=== PATIENT | male | born 1985 | race Caucasian/White ===

== ENCOUNTER 2020-07-10 19:02 | Emergency (ER) | payer SELFPAY ==
--- NOTE | ~2020-07-10 | XR_ITS ---
EXAMINATION: XR lumbar spine 2-3V EXAM DATE: 07/10/2020 19:38 INDICATION: Left-sided low back pain, no known recent injury. TECHNIQUE: Lumber spine frontal, lateral, lateral L5-S1 projections for interpretation. There is no prior study for comparison. FINDINGS: There is 2 mm retrolisthesis L3 on L4 and L4 on L5. The disc heights and vertebral body he ights are maintained. There is mild to moderate lower lumbar facet arthropathy. No spondylolysis. Sac rum, sacroiliac joints, sacral arcuate lines are intact. Paraspinal soft tissue is unremarkable. IMPRESSION: 1. Mild to moderate lower lumbar facet arthropathy. Reviewed, dictated and finalized at location A.
[2020-07-10 19:15] VITALS: BP 113/57; PULSE 88; RESP 18; TEMP 36.8; O2SAT 98
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
== END 2020-07-10 20:00 | disposition home or self-care (01) ==
PROVIDERS: Emergency Provider Registered Nurse
DX: S39.012A Strain of muscle, fascia and tendon of lower back, initial encounter (principal); X50.0XXA Overexertion from strenuous movement or load, initial encounter; F17.210 Nicotine dependence, cigarettes, uncomplicated
CPT/HCPCS: 72100; 99213; G0463

== ENCOUNTER 2020-09-08 09:48 | Emergency (ER) | payer SELFPAY ==
--- NOTE | ~2020-09-08 | XR_ITS ---
EXAMINATION: XR foot RT min 3V EXAM DATE: 09/08/2020 10:11 INDICATION: Generalized right foot pain and swelling for 2 days. TECHNIQUE: Right foot dorsoplantar, lateral and oblique projections obtained and reviewed. There is no prior study for comparison. FINDINGS: Right metatarsal bones unremarkable. 1st middle phalangeal amputation. There are no acute fractures or dislocations identified. There is no subcutaneous gas. There is soft tissue swelling fo refoot. There are no radiopaque foreign bodies. IMPRESSION: 1. Right foot exam without acute osseous findings. 2. Soft tissue swelling. Reviewed, dictated and finalized at location B. EAD BUILDER
[2020-09-08 09:54] VITALS: BP 133/81; PULSE 84; RESP 16; TEMP 37.7; O2SAT 99
--- NOTE | 2020-09-08 10:07 | ED.LOWEXIN ---
HPI - Extremity Injury (Lower) General Chief Complaint: Extremity Injury, Lower Stated Complaint: right foot injury Source: patient Mode of arrival: ambulatory Limitations: no limitations History of Present Illness HPI Narrative: Patient is a 35-year-old male who presents complaining of right foot pain. Patient reports pain x1 day. Reports taking ibuprofen and pain is somewhat decreased. Patient reports redness and swelling to right foot. Previous crush injury to same foot. He denies new injury denies a history of DVT. He denies all other complaints. MD complaint: other (Right foot pain) Related Data Allergies Allergy/AdvReac Type Severity Reaction Status Date / Time No Known Allergies Allergy Verified 07/10/20 19:23 Review of Systems Review of Systems: Narrative: CONSTITUTIONAL: Denies fever, chills, or sweats. EYES: Denies visual changes, redness, or discharge. ENT: Denies rhinorrhea, congestion, sore throat, or otalgia. CARDIOVASCULAR: Denies chest pain, palpitations, or edema. RESPIRATORY: Denies cough or dyspnea. GASTROINTESTINAL: Denies abdominal pain, nausea, vomiting, or diarrhea. GENITOURINARY: Denies dysuria or hematuria. SKIN: Denies rash or itching. MUSCULOSKELETAL: Right foot pain NEUROLOGIC: Denies headache, numbness, dizziness, or weakness. PSYCHIATRIC: Denies anxiety or depression. [facility] Past Medical History Medical History (Updated 09/08/20 @ 10:34 by DEEPALI Lino) Amputation of right great toe Femur fracture, right ORIF Fracture of right foot Lumbar back pain Open fracture of right clavicle Right orbital fracture Surgical History Surgical History History of orthopedic surgery Family History Family History (Updated 09/08/20 @ 10:09 by DEEPALI Lino) Other No significant family history Social History Social History Smoking packs per day: 1 Smoking cigarettes per day: 20.0 Years smoked: 20 Smoking pack-years: 20.00 Smoking status: Current some day smoker Tobacco type: cigarettes Alcohol intake: former Substance use type: marijuana Gender identity (if verbalized by the patient): Male Exam Narrative: Exam Narrative: GENERAL: Well-appearing, well-nourished, and in no acute distress. HEAD: Normocephalic, atraumatic. EYES: No redness or drainage. Conjunctiva are normal. ENT: Mucous membranes pink and moist. CHEST: No respiratory distress. HEART: Regular rate and rhythm. EXTREMITIES: Normal range of motion. Erythema and edema to right foot, positive pedal pulse, capillary refill intact SKIN: Warm, dry, no rash. NEURO: No focal deficits. Alert and oriented x3. Gait steady. PSYCH: Normal affect. No signs of depression or anxiety. Course Vital Signs Vital signs: Vital Signs Temperature 37.7 C H 09/08/20 09:54 Pulse Rate 84 09/08/20 09:54 Respiratory Rate 16 09/08/20 09:54 Blood Pressure 133/81 09/08/20 09:54 Pulse Oximetry 99 09/08/20 09:54 Temperature 37.7 C H 09/08/20 09:54 Pulse Rate 84 09/08/20 09:54 Respiratory Rate 16 09/08/20 09:54 Blood Pressure 133/81 09/08/20 09:54 Pulse Oximetry 99 09/08/20 09:54 Reviewed. Patient has been instructed to follow-up with his PCP regarding his blood pressure. MDM - Extremity Injury (Lower) MDM Narrative Medical decision making narrative: Patient most likely has cellulitis to his right foot. Evidence of interdigital tinea with small amounts of cracking between toes. Discussed treatment of that as well. Patient's Wells Score for DVT is 0. Discussed with patient signs or symptoms of DVT. Discussed with patient the need to take antibiotics as directed for full course of treatment. Patient is also aware that if increases in swelling, redness or numbness and tingling in the foot occurs, that he is to go to the emergency department immediately for further ev
== END 2020-09-08 10:44 | disposition home or self-care (01) ==
PROVIDERS: Emergency Provider Nurse Practitioner
DX: L03.115 Cellulitis of right lower limb (principal); F17.210 Nicotine dependence, cigarettes, uncomplicated
CPT/HCPCS: 73630; 99213; G0463

== ENCOUNTER 2021-08-24 18:22 | Emergency (ER) | payer OTHER, SELFPAY ==
[2021-08-24 18:28] VITALS: BP 129/73; PULSE 70; RESP 16; TEMP 37.1; O2SAT 97
[2021-08-24 18:39] VITALS: BP 129/73; PULSE 70; RESP 16; TEMP 37.1; O2SAT 97
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
[2021-08-24] MEDS: cefTRIAXone 1 GM, LIDOCAINE HCL 1% LOCAL INJ 2.1 ML IM (19:00)
== END 2021-08-24 19:22 | disposition home or self-care (01) ==
PROVIDERS: Emergency Provider Nurse Practitioner Adult Health
DX: N39.0 Urinary tract infection, site not specified (principal); M62.838 Other muscle spasm; F17.210 Nicotine dependence, cigarettes, uncomplicated
CPT/HCPCS: 81003; 87086; 87491; 87591; 87661; 96372; 99213; G0463; J0696

== ENCOUNTER 2021-10-15 12:50 | Emergency (ER) | payer OTHER, SELFPAY ==
--- NOTE | 2021-10-15 12:53 | ED.LOWEXIN ---
HPI - Extremity Injury (Lower) General Chief Complaint: Extremity Injury, Lower Stated Complaint: left ankle pain Time Seen by Provider: 10/15/21 12:53 Source: patient and RN notes reviewed History of Present Illness HPI Narrative: Patient is a 36-year-old male who presents the urgent care with complaints of left ankle pain and swelling. Patient states it started yesterday and has increased in pain today where he cannot even put a sock on. Patient states that he has had no injury or trauma. States that it did happen in the right foot in the past and they told him it was cellulitis . Patient does not have any open wounds. Denies of any foreign body in the ankle/foot from previous fracture. Denies of fever, chills, nausea or vomiting. No other acute complaints. No acute distress noted. Patient read the plan of care. Some parts of this dictation were generated by voice recognition software and may contain typographical and/or grammatical inaccuracies. Related Data Allergies Allergy/AdvReac Type Severity Reaction Status Date / Time No Known Allergies Allergy Verified 10/15/21 13:04 Review of Systems Review of Systems: CONSTITUTIONAL: Denies fever, chills, or sweats. EYES: Denies visual changes, redness, or discharge. ENT: Denies rhinorrhea, congestion, sore throat, or otalgia. CARDIOVASCULAR: Denies chest pain, palpitations, or edema. RESPIRATORY: Denies cough or dyspnea. GASTROINTESTINAL: Denies abdominal pain, nausea, vomiting, or diarrhea. GENITOURINARY: Denies dysuria or hematuria. SKIN: Denies rash or itching. MUSCULOSKELETAL: Reports of left ankle pain and swelling NEUROLOGIC: Denies headache, numbness, or weakness. All other systems reviewed are negative, except as documented in HPI. [facility] Past Medical History Medical History Amputation of right great toe Femur fracture, right ORIF Fracture of right foot Lumbar back pain Open fracture of right clavicle Right orbital fracture Surgical History Surgical History History of orthopedic surgery Family History Family History Other No significant family history Social History Social History Smoking packs per day: 1 Smoking cigarettes per day: 20.0 Years smoked: 20 Smoking pack-years: 20.00 Smoking status: Current some day smoker Tobacco type: cigarettes Alcohol intake: former Substance use type: marijuana Gender identity (if verbalized by the patient): Male Comments At the time of my signature, I reviewed and agree with the nursing past medical, surgical, social, and family history. There is no relevant family history pertinent to the patient complaint. Exam Narrative: GENERAL: This is a well-nourished, well-developed patient, in no apparent distress. HEAD: normocephalic, atraumatic. EYES: PERRL. Sclera clear/white. Vision is grossly intact. EARS: External ears normal NOSE: External nose normal with no obvious nasal discharge, nares without redness, no rhinorrhea. THROAT: Mucous membranes moist NECK: Neck supple CARDIOVASCULAR: Regular rate and rhythm without murmurs, gallops, or rubs. RESPIRATORY: Clear to auscultation. Breath sounds equal bilaterally. No wheezes, rales, or rhonchi. SKIN: warm, intact with no suspicious lesions or rash, good texture and turgor. NEURO: awake, alert, and oriented to person, place and time. There were no obvious focal neurologic abnormalities. EXTREMITIES: Moderate erythema/edema to the left lateral malleolus with moderate to severe tenderness on light touch/palpation. Positive strong left pedal pulse with capillary refill less than 2 seconds. Highly suspicious for gout Course Course Level of Care: Express Care Visit Vital Signs Vital signs: Vital Signs Temperature 98.6 F 01/2
[2021-10-15 12:56] VITALS: BP 111/68; PULSE 96; RESP 16; TEMP 37; O2SAT 99
== END 2021-10-15 13:23 | disposition home or self-care (01) ==
PROVIDERS: Emergency Provider Nurse Practitioner Family
DX: M10.9 Gout, unspecified (principal); F17.210 Nicotine dependence, cigarettes, uncomplicated
CPT/HCPCS: 99213; G0463

== ENCOUNTER 2022-09-04 15:09 | Emergency (ER) | payer OTHER, BC, SELFPAY ==
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
[2022-09-04 15:16] VITALS: BP 143/81; PULSE 97; RESP 20; TEMP 36.9; O2SAT 97
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
== END 2022-09-04 17:09 | disposition home or self-care (01) ==
PROVIDERS: Emergency Provider Nurse Practitioner
DX: S29.012A Strain of muscle and tendon of back wall of thorax, initial encounter (principal); V43.52XA Car driver injured in collision with other type car in traffic accident, initial encounter; M47.814 Spondylosis without myelopathy or radiculopathy, thoracic region; F17.210 Nicotine dependence, cigarettes, uncomplicated; Z89.411 Acquired absence of right great toe
CPT/HCPCS: 71046; 72072; 99214; G0463

== ENCOUNTER 2022-12-31 14:56 | Emergency (ER) | payer BC, SELFPAY ==
[2022-12-31 15:03] VITALS: BP 127/83; PULSE 76; RESP 16; TEMP 37.2; O2SAT 98
--- NOTE | 2022-12-31 15:53 | ED.URI ---
HPI - URI/Sore Throat General Chief Complaint: Upper Respiratory Infection Stated Complaint: Sore Throat Time Seen by Provider: 12/31/22 15:30 Source: patient, RN notes reviewed and old records reviewed Mode of arrival: ambulatory Limitations: no limitations History of Present Illness HPI Narrative: 37 year old male accompanied by son resents to express care with complaints of sore throat nasal congestion and drainage and cough which started last night. Patient reports that he has felt feverish and has had some chills and sweats denies any headache, body aches or any nausea or vomiting. Patient has not taken any OTC medications for his symptoms. Patient has had known exposure to strep from his son who tested positive today in clinic. MD elicited complaint: sore throat, rhinorrhea and nasal congestion Pertinent past history: other (reports history of strep throat) Onset (ago): day(s) (last night) Pain scale (0-10): 5 Able to tolerate fluids by mouth: Yes Treatments prior to arrival: none Related Data Allergies Allergy/AdvReac Type Severity Reaction Status Date / Time No Known Allergies Allergy Verified 12/31/22 15:43 Review of Systems Review of Systems: CONSTITUTIONAL: Reports malaise, chills, sweats, or fever. EYES: Denies visual changes, redness, or discharge. ENT: Reports rhinorrhea, congestion, sinus pain, no otalgia and sore throat especially left side. CARDIOVASCULAR: Denies chest pain, palpitations, or edema. RESPIRATORY: Reports cough.? Denies dyspnea. GASTROINTESTINAL: Denies abdominal pain, nausea, vomiting, diarrhea SKIN: Denies rash or itching. MUSCULOSKELETAL: Denies myalgia. NEUROLOGIC: Denies headache. All systems reviewed & are unremarkable except as noted in HPI and below PMFSH Past Medical History Medical History Amputation of right great toe Femur fracture, right ORIF Fracture of right foot Lumbar back pain Open fracture of right clavicle Right orbital fracture Surgical History Surgical History History of orthopedic surgery Family History Family History Other No significant family history Social History Social History Smoking packs per day: 1 Smoking cigarettes per day: 20.0 Years smoked: 20 Smoking pack-years: 20.00 Smoking status: Current some day smoker Tobacco type: cigarettes Alcohol intake: former Substance use type: marijuana Living arrangements: with family Gender identity (if verbalized by the patient): Male Comments At time of signature, agree with nursing past medical, surgical, social and family history. There is no relevant family history pertinent to the presenting complaint Exam Narrative: GENERAL: Well-appearing, well-nourished, and in no acute distress. HEAD: Normocephalic EYES: PERRLA, conjunctivae clear ENT: Nares clear, turbinates edematous and erythematous, clear discharge. Mucous membranes moist. TM pearly spence with dull light reflex bilaterally; no tragal tenderness. Oropharynx erythematous without lesions. Tonsils red enlarged especially left tonsil and without exudate, no drooling, no hoarseness, no trismus, uvula midline. NECK: Supple. lymphadenopathy CHEST: Clear to auscultation, breath sounds equal. No wheezing, rhonchi, rales, or stridor. No respiratory distress, speaks in full sentences.SAO2 98% on room air HEART: Regular rate and rhythm. No murmur heard. SKIN: Warm, dry, no rash. NEURO: Alert and oriented x3. PSYCH: Normal mood and affect Course Course Emergency Course: Patient is aware of diagnosis, understands and agrees to treatment plan.? Anticipatory guidance given.? Patient agrees to follow-up as directed and is aware of reasons to seek care at the emergency department. Po
== END 2022-12-31 16:00 | disposition home or self-care (01) ==
PROVIDERS: Emergency Provider Registered Nurse
DX: J03.90 Acute tonsillitis, unspecified (principal); F17.210 Nicotine dependence, cigarettes, uncomplicated
CPT/HCPCS: 87081; 87880; 99213; G0463

== ENCOUNTER 2023-11-08 12:42 | Emergency (ER) | payer OTHER, BC, SELFPAY ==
--- NOTE | ~2023-11-08 | XR_ITS ---
EXAMINATION: XR lumbar spine min 4V DATE: 11/08/2023 13:44 INDICATION: Low back pain TECHNIQUE: Anteroposterior, lateral, and bilateral oblique views of the lumbar spine, and cone-down l ateral view of the lumbosacral junction were obtained. COMPARISON: 07/10/2020 FINDINGS: There are 2 mm of unchanged retrolisthesis of L3 on L4 and L4 on L5. The vertebral body hei ghts are maintained. There is mild loss of intervertebral disc space height at L4-5. There is no frac ture. Orthopedic hardware is noted in the proximal right femur. 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 IMPRESSION: 1. Mild lumbar spondylosis without acute findings or significant interval change. Reviewed, dictated and finalized at location L. WEIGHER IMPRESSION: 1. Mild lumbar spondylosis without acute findings or significant interval ino garcia
[2023-11-08 12:48] VITALS: BP 131/77; PULSE 73; RESP 18; TEMP 36.7; O2SAT 100
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
== END 2023-11-08 14:10 | disposition home or self-care (01) ==
PROVIDERS: Emergency Provider Registered Nurse
DX: M54.50 Low back pain, unspecified (principal); F17.210 Nicotine dependence, cigarettes, uncomplicated
CPT/HCPCS: 72110; 99213; G0463

== ENCOUNTER 2024-11-01 13:47 | Emergency (ER) | payer OTHER, MEDICAID, SELFPAY ==
--- OUTSIDE RECORDS SUMMARY | 2024-11-01 13:49 | XMS_ITS | Continuity of Care Document ---
Author Organization [facility] Address [address] [place] [address] Phone Care Team Providers Care Cephalometric Tracer Name Role Phone Renay Aguilar Unavailable Unavailable Procedures Procedure Date Eye Exam Established Pt Office/outpatient Visit, Est Advance Directives Directive Yes / No Effective Date File Name No Information Encounters Encounter Description Practice Location Reason(s) For Visit Diagnoses Date Provider Providers Copied on Encounter [facility], [address] [place] [address] [address], [place], [place], [id number], tel:[phone] [facility] No Information 0 [facility] , [address], [place], [place], [facility], [place]. tel:[phone] Office/outpat ient Visit, Est [facility], [address] [place] [address] [address], [place], [place], [id number], tel:[phone] [facility] No Information 0 Hsieh OD Chase. [facility] , [address], [place], [address], [place]. tel:[phone] Referring Provider: Fermin Garcia [facility] [address], [place], [place], [facility]. tel:[phone] Family History Family Member Type Diagnosis Age At Onset No Information Payers Payer name Insurance type Covered green party ID Authoriza tion(s) GHP CI [id number] Social History Type Description Quantity Date Captured Comments Sex Male Smoking Status No Information Chief Complaint And Reason For Visit No Information Reason For Referral Reason For Referral No Information History Of Present Illness Encounter Date Complaint History Of Prese nt Illness No Information Functional Status Date Functional Assessmen t No Information Instructions Date Instruction Additional Infor mation No Information Assessments Type Assessment Date No Information Patient Care Teams Name Effective Dates (start - stop) Status Members No Information
--- OUTSIDE RECORDS SUMMARY | 2024-11-01 13:49 | XMS_ITS | Clinical Summary ---
Author Organization [facility] Address [address] [place] [address] Phone Care Team Providers Care Director Of Social Media Marketing Name Role Phone Provider, None Primary Care Provider Unavailabl e Allergies No known active allergies Medications ibuprofen (MOTRIN) 800 MG Tablet Take 1 Tab by mouth every 8 hours. 30 Tab 0 04/19/2016 Active HYDROcodone-kristen taminophen (NORCO) 5-325 MG Tablet Take 1-2 Tabs by mouth every 4 hours as needed for Pain. 20 Tab 0 04/19/2016 Active HYDROcodone-kristen taminophen (NORCO) 5-325 MG Tablet Take 1 Tab by mouth every 6 hours as needed for Moderate or more severe pain. 10 Tab 05/13/2019 Active ketorolac (TORADOL) 10 MG Tablet Take 1 Tab by mouth every 6 hours as needed for Mild or more severe pain. 15 Tab 05/13/2019 Active ibuprofen (MOTRIN) 800 MG Tablet Take 1 Tablet by mouth every 8 hours as needed for Fever. 20 Tablet 07/02/2021 Active Immunizations Immunization Administration Dates Next Due TDAP Vaccine 07/02/2021 Social History Tobacco Use Types Packs/Day Years Used Date Smoking Tobacco: Every Day Cigarettes Smokeless Tobacco: Never Alcohol Use Standard Drinks/Week Comments Not Currently 0 (1 standard drink = 0.6 oz pur e alcohol) Socially Sex and Gender Information Value Date Recorded Sex Assigned at Not on file Legal Sex Male 12:10 AM CDT Gender Identity Not on file Sexual Orientation Not on file Last Filed Vital Signs Vital Sign Reading Time Taken Comments Blood Pressure 125/79 07/03/2021 12:01 AM CDT Pulse 68 07/03/2021 12:01 AM CDT Temperature 36.5 C (97.7 F) 07/02/2021 10:29 PM CDT Respiratory Rate 18 07/03/2021 12:01 AM CDT Oxygen Saturation 95% 07/03/2021 12:01 AM CDT Inhaled Oxygen Concentration - - Weight 70.3 kg (155 lb) 07/02/2021 10:29 PM CDT Height 180.3 cm (5' 11 ) 07/02/2021 10:29 PM CDT Body Mass Index 21.62 07/02/2021 10:29 PM CDT Plan of Treatment Health Maintenance Due Date Last Done Comments Hepatitis C Virus (HCV) Screening 1983 Hepatitis B Immunization (1 of 3 - 19+ 3-dose series) 2002 Influenza Immunization (#1) 2024 SARS-COV-2 Immunization ( season) 2024 Respiratory Syncytial Virus (RSV) Immunization (Adult) (1 - 1-dose 75+ series) 2058 DTaP/Tdap/Td Immunization Discontinued 07/02/2021 Meningococcal Immunization (ACWY) Aged Out No longer eligible based on patient's age to complete this topic Pneumococcal Immunization Combined Aged Out No longer eligible b ased on patient's age to complete this topic Rotavirus Immunization Aged Out No lo nger eligible based on patient's age to complete this topic Insurance [place] GENERIC Care Teams Director Of Social Media Marketing Relationship Specialty Start Date End Date Provider, None [place] PCP - General 04/19/16
--- OUTSIDE RECORDS SUMMARY | 2024-11-01 13:53 | XMS_ITS | Continuity of Care Document ---
Author Organization [facility] Address [address] [place] [address] Phone Care Team Providers Care Assistant Auditor Name Role Phone Renay Aguilar Unavailable Unavailable Procedures Procedure Date Eye Exam Established Pt Office/outpatient Visit, Est Advance Directives Directive Yes / No Effective Date File Name No Information Encounters Encounter Description Practice Location Reason(s) For Visit Diagnoses Date Provider Providers Copied on Encounter [facility], [address] [place] [address] [address], [place], [place], [id number], tel:[phone] [facility] No Information 0 Lauren Ni[facility]. [facility] , [address], [place], [place], [facility], [place]. tel:[phone] Office/outpat ient Visit, Est [facility], [address] [place] [address] [address], [place], [place], [id number], tel:[phone] [facility] No Information 0 Hsieh OD Chase. [facility] , [address], [place], [address], [place]. tel:[phone] Referring Provider: Fermin Garcia [facility] [address], [place], [place], [facility]. tel:[phone] Family History Family Member Type Diagnosis Age At Onset No Information Payers Payer name Insurance type Covered alliance party ID Authoriza tion(s) GHP CI [id number] Social History Type Description Quantity Date Captured [...]
--- OUTSIDE RECORDS SUMMARY | 2024-11-01 13:53 | XMS_ITS | Referral Summary ---
Author Organization [facility] Address [address] [place] [address] Care Team Providers Care Utility Locate Technician Name Role Phone No, Physician Primary Care Provider [phone] Allergies No known active allergies Medications naproxen (NAPROSYN) 375 mg tablet Take 1 tablet (375 mg total) by mouth 2 (two) times a day with meals 20 tablet 9 Active HYDROcodone-kristen taminophen (NORCO) 5-325 mg per tabletIndicatio ns:Pain Take 1-2 tablets by mouth every 4 (four) hours as needed for pain Do not exceed 8 tablets/day. 15 tablet 1 Active diclofenac sodium (VOLTAREN) 1 % gel Apply 2 g topically 4 (four) times a day 240 g 3 Active Active Problems No known active problems Social History Tobacco Use Types Packs/Day Years Used Date Smoking Tobacco: Every Day Cigarettes Tobacco Cessation:Ready to Q uit: Not Asked; Counseling Given: Not Answered Personal Safety Answer Date Recorded Have you ever been in or are you currently in a harmful physical or emotional relationship or is someone making you feel afraid or unsafe? 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 Gender Identity Not on file Sexual Orientation Not on file Last Filed Vital Signs Vital Sign Reading Time Taken Comments Blood Pressure 154/99 01/26/2023 9:30 PM CDT Pulse 85 01/26/2023 9:30 PM CDT Temperature 36.9 C (98.5 F) 01/26/2023 9:30 PM CDT Respiratory Rate 13 01/26/2023 9:30 PM CDT Oxygen Saturation 96% 01/26/2023 9:30 PM CDT Inhaled Oxygen Concentration - - Weight 68 kg (150 lb) 01/26/2023 9:30 PM CDT Height 180.3 cm (5' 11 ) 01/26/2023 9:30 PM CDT Body Mass Index 20.92 01/26/2023 9:30 PM CDT Plan of Treatment Not on file Insurance [email or web address] [place] [facility] [employer] Navigation [facility] Care Teams Utility Locate Technician Relationship Specialty Start Date End Date No, Physician PCP - General 05/27/17
--- OUTSIDE RECORDS SUMMARY | 2024-11-01 13:53 | XMS_ITS | Clinical Summary ---
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 Gender Identity Not on file Sexual Orientation Not on file Obstetrics History Last Filed Vital Signs Vital Sign Reading [...] 01/26/2023 9:30 PM CDT Plan of Treatment Health Maintenance Due Date Last Done Comments Depression Screening 1983 Hepatitis C Screening 1983 Pneumococcal vaccine <65 (1 of 2 - PCV) 1989 Varicella Vaccines (1 of 2 - 13+ 2-dose series) 1996 Hepatitis B Screening 2001 Regular Well Visit/Exam 18-64 2001 Influenza Vaccine (#1) 2024 DTaP/Tdap/Td Vaccine (2 - Td or Tdap) 07/02/2031 07/02/2021 HPV Vaccines Aged Out No longer eligi ble based on patient's age to complete this topic Insurance [employer] [place] [facility] PL[facility] Care Teams District Plant Superintendent Relationship Specialty Start Date End Date No, Physician PCP - General 05/27/17
[2024-11-01 13:56] VITALS: BP 128/72; PULSE 69; RESP 16; TEMP 37.1; O2SAT 100
--- NOTE | 2024-11-01 14:39 | ED.URI ---
HPI - URI/Sore Throat General Chief Complaint: Upper Respiratory Infection Stated Complaint: flu symptoms/sinus pressure Time Seen by Provider: 11/01/24 14:30 Source: patient, RN notes reviewed and old records reviewed Mode of arrival: ambulatory Limitations: no limitations History of Present Illness HPI Narrative: 39 year old male presents to express care with complaints of 2 day history of cough with congestion headache, body aches, nasal congestion with some fevers and cold chills. Patient reports that he has been taking Zyrtec, NyQuil, DayQuil and has also taken some Theraflu for his symptoms. Patient reports that kids have been ill also. Patient is daily smoker 1ppd for many years. MD elicited complaint: cough, rhinorrhea, nasal congestion, sinus pain and other (body aches) Pertinent past history: other (tobacco abuse) Onset (ago): day(s) (2) Severity: moderate Able to tolerate fluids by mouth: Yes Related Data Allergies Allergy/AdvReac Type Severity Reaction Status Date / Time No Known Allergies Allergy Verified 11/01/24 14:01 Review of Systems Review of Systems: CONSTITUTIONAL: Reports malaise, chills, sweats, or fever. EYES: Denies visual changes, redness, or discharge. ENT: Reports rhinorrhea, congestion, sinus pain, no otalgia and no sore throat. CARDIOVASCULAR: Denies chest pain, palpitations, or edema. RESPIRATORY: Reports cough.? Denies dyspnea. GASTROINTESTINAL: Denies abdominal pain, nausea, vomiting, diarrhea SKIN: Denies rash or itching. MUSCULOSKELETAL: Reports myalgia. NEUROLOGIC:Reports headache. All systems reviewed & are unremarkable except as noted in HPI and below PMFSH Past Medical History Medical History Amputation of right great toe Fracture of right foot Lumbar back pain Right orbital fracture Open fracture of right clavicle Femur fracture, right ORIF Surgical History Surgical History History of orthopedic surgery Family History Family History Other No significant family history Social History Social History (Updated 11/04/24 @ 09:29 by Margarette L. Saul, STEAM CONDITIONING OPERATOR) Smoking packs per day: 1 Smoking cigarettes per day: 20.0 Years smoked: 20 Smoking pack-years: 20.00 Smoking status: Current every day smoker Tobacco type: cigarettes Alcohol intake: former Substance use: current Substance use type: marijuana Living arrangements: with family Gender identity (if verbalized by the patient): Male Comments At time of signature, agree with nursing past medical, surgical, social and family history. There is no relevant family history pertinent to the presenting complaint Exam Narrative: GENERAL:Ill-appearing, well-nourished, and in no acute distress. HEAD: Normocephalic EYES: PERRLA, conjunctivae clear ENT: Nares clear, turbinates edematous and erythematous, clear discharge. Mucous membranes moist. TM pearly spence with dull light reflex bilaterally; no tragal tenderness. Oropharynx erythematous without lesions. Tonsils not enlarged and without exudate, no drooling, no hoarseness, no trismus, uvula midline.post nasal drainage NECK: Supple. No lymphadenopathy CHEST: Clear to auscultation, breath sounds equal. No wheezing, rhonchi, rales, or stridor. No respiratory distress, speaks in full sentences.cough, SAO2 100% on room air HEART: Regular rate and rhythm. No murmur heard. SKIN: Warm, dry, no rash. NEURO: Alert and oriented x3. PSYCH: Normal mood and affect Course Course Emergency Course: Patient is aware of diagnosis, understands and agrees to treatment plan.? Anticipatory guidance given.? Patient agrees to follow-up as directed and is aware of reasons to seek care at the emergency department. Portions of this record may have been created with voice recognition software Level of Care: Express Care Visit Vital Signs Vital signs: Vital Signs Temperature 37.1 C 11/01/24 13:56 Pulse Rate 69 11/01/24 13:56 Respiratory Rate 16 11/01/24 13:56 Blood Pressure 128/72 11/01/24 13:56 Pulse Oximetry 100 11/01/24 13:56 Oxygen Delivery Room Air 11/01/24 13:56 Temperature 37.1 C 11/01/24 13:56 Pulse Rate 69 11/01/24 13:56 Respiratory Rate 16 11/01/24 13:56 Blood Pressure 128/72 11/01/24 13:56 Pulse Oximetry 100 11/01/24 13:56 Oxygen Delivery Room Air 11/01/24 13:56 Reviewed MDM - URI/Sore Throat MDM Narrative Medical decision making narrative: Differential diagnosis considered: Triplett virus, strep pharyngitis, allergic rhinitis, upper respiratory tract infection, sinusitis, rhinosinusitis, nasopharyngitis. viral pharyngitis, otitis media, otitis externa, pneumonia, bronchitis, viral cough syndrome, viral syndrome, and influenza.? Exam findings show no acute concerns or changes; patient is non-toxic appearing and is in no distress.? Patient is appropriate for outpatient treatment and follow-up. Differential Diagnosis Differential diagnosis: Likely upper respiratory infection, sinusitis, viral infection, influenza and other (COVOD, acute cough) Lab Data Attestation: I reviewed the patient's lab results. Lab results narrative: Influenza A negative, Influenza B positive, COVID antigen negative Labs: Lab Results 11/01/24 Range/Units 14:00 POC Influenza A Ag Negative (Negative) POC Influenza B Ag Positive (Negative) POC SARS CoV-2 Ag Negative (Negative) reviewed Critical Care Time Critical Care Time Critical Care Time: No Discharge Plan Discharge Clinical Impression: Influenza Patient Disposition: Home, Self-Care Condition: Stable Instructions: Oseltamivir (By mouth), Influenza (ED) Additional Instructions: Increase fluids especially juices and water [id number] cough and cold medicine of your choice for your symptoms Zyrtec Claritin or May daily Tylenol or ibuprofen for any fever pain heat to the face 20-30 minutes 4-6 times a day for pain Salt water gargles, throat lozenges or throat sprays as desired Tamiflu take as prescribed You must be fever free without use of Tylenol or ibuprofen before you can return to work on average influenza last about 5 days from start of symptoms If your symptoms persist, change or worsen significantly before you can contact your personal physician then please, without delay, go to the emergency department for further evaluation. Follow-up with PCP in 7-10 days or sooner if needed Follow up with PCP soon in regards to your blood pressure which is elevated above threshold for referral. Blood pressure above 120/80 may indicate pre-hypertension. 128/72 Patient Language: Montene[place]in Prescriptions: New oseltamivir [Tamiflu] 75 mg capsule 75 mg PO Q12H 5 Days Qty: 10 0RF No Action prednisone 20 mg tablet 20 mg PO BID Qty: 10 0RF cyclobenzaprine 10 mg tablet 10 mg PO TID PRN (Reason: muscle spasm) Qty: 20 0RF Rx Instructions: do not drive while taking ibuprofen 600 mg tablet 600 mg PO TID PRN (Reason: pain) Qty: 30 0RF Rx Instructions: with food Follow-up/Referrals: PHYSICIAN,MAXILLOFACIAL SURGEON [Primary Care Provider] - Stand Alone Forms: Work/School Release IP Time of Disposition: 14:57 [place] Coma Scale Eyes: Open Verbal: Oriented and Alert Motor: Follows Commands Yesy Coma Total Score: 15
[2024-11-01 15:00] LABS: EDCOVIDSCREEN Negative (Negative); EDINFLUASCREEN Negative (Negative); EDINFLUBSCREEN Positive (Negative)
== END 2024-11-01 15:04 | disposition home or self-care (01) ==
PROVIDERS: Emergency Provider Registered Nurse
DX: J10.1 Influenza due to other identified influenza virus with other respiratory manifestations (principal); Z20.822 Contact with and (suspected) exposure to COVID-19; F17.210 Nicotine dependence, cigarettes, uncomplicated; F12.90 Cannabis use, unspecified, uncomplicated
CPT/HCPCS: 87426; 87804; 99213; G0463